=== PATIENT | female | born 1955 | race Asian ===

== ENCOUNTER → 2018-01-27 | Outpatient (CLI) | payer MEDICAID | END | disposition home or self-care (01) | LOC: LABPV 13:57 | PROVIDERS: ATTEND Family Medicine | DX: I70.0 Atherosclerosis of aorta (principal); R91.8 Other nonspecific abnormal finding of lung field ==

== ENCOUNTER → 2018-04-29 | Outpatient (CLI) | payer MEDICAID | END | disposition home or self-care (01) | LOC: RADPV 13:00 | PROVIDERS: ATTEND Family Medicine | DX: J90 Pleural effusion, not elsewhere classified (principal); R91.8 Other nonspecific abnormal finding of lung field ==

== ENCOUNTER → 2018-05-14 | Outpatient (CLI) | payer MEDICAID ==
[~2018-05-14] MED LIST: IOVERSOL 320 MG/ML 100 ML VIAL ONE
== END | disposition home or self-care (01) ==
LOC: RADMN 11:22
PROVIDERS: ATTEND Family Medicine
DX: J90 Pleural effusion, not elsewhere classified (principal); R91.8 Other nonspecific abnormal finding of lung field; I51.7 Cardiomegaly; I31.3 Pericardial effusion (noninflammatory); I28.9 Disease of pulmonary vessels, unspecified
CPT/HCPCS: 71260; Q9967

== ENCOUNTER → 2019-02-04 | Outpatient (CLI) | payer MEDICAID | END | disposition home or self-care (01) | LOC: RADPV 11:26 | PROVIDERS: ATTEND Internal Medicine Infectious Disease | DX: R91.1 Solitary pulmonary nodule (principal); J90 Pleural effusion, not elsewhere classified ==